=== PATIENT | female | born 1995 | race Asian ===

== ENCOUNTER 2019-09-08 10:06 | Outpatient (CLI) | payer OTHER, SELFPAY ==
[2019-09-09 11:35] LABS: HIV-1/2 Ag & Ab Screen Negative (Negative)
== END 2019-09-08 10:26 ==
PROVIDERS: Visit Provider Nurse Practitioner Women's Health
DX: Z11.4 Encounter for screening for human immunodeficiency virus [HIV] (principal)
CPT/HCPCS: 36415; 87389